=== PATIENT | female | born 1955 | race Caucasian/White ===

== ENCOUNTER 2019-12-28 09:01 | Emergency (ER) | payer OTHER ==
--- NOTE | 2019-12-28 09:39 | ER ---
Nurse's Notes [facility] Name: Anusha Gilbert Age: 64 yrs Sex: Female : 1955 Arrival Date: 12/28/2019 Time: 09:03 Bed 5 Private MD: Francisco Pimentel V Diagnosis: Encounter for general adult medical examination without abnormal findings Presentation: 12/27 09:18 Chief complaint: Patient states: Pt is not having any symptoms at this time, but is ss concerned because she has been around her daughter, who's father in law's caregiver has not been feeling well. Coronavirus screen: Patient denies fever greater than 100.4F, cough, shortness of breath, or difficulty breathing. Proceed with normal triage process. Ebola Screen: Patient denies exposure to infectious person. Patient denies travel to an Ebola-affected area in the 21 days before illness onset. Resp Distress? No respiratory distress is noted at this time. Initial Sepsis Screen: Does the patient meet any 2 criteria? No. Patient's initial sepsis screen is negative. Does the patient have a suspected source of infection? No. Patient's initial sepsis screen is negative. Risk Assessment: Do you want to hurt yourself or someone else? Patient reports no desire to harm self or others. 09:18 Method Of Arrival: Ambulatory ss 09:18 Acuity: DONNY 5 ss Historical: - Allergies: 09:20 No Known Allergies; ss - PSHx: 09:20 ; Cholecystectomy; ss - Immunization history:: Adult Immunizations up to date. - Social history:: Smoking status: Patient denies any tobacco usage or history of. - Family history:: not pertinent. - Hospitalizations: : No recent hospitalization is reported. Screenin:49 Abuse screen: Denies threats or abuse. Denies injuries from another. Nutritional sv screening: No deficits noted. Tuberculosis screening: No symptoms or risk factors identified. Fall Risk None identified. Assessment: 09:25 General: Appears in no apparent distress. comfortable, well groomed, well developed, sv Behavior is calm, cooperative, appropriate for age. Pain: Denies pain. Neuro: Level of Consciousness is awake, alert, obeys commands, Oriented to person, place, time, situation, Moves all extremities. Full function Gait is steady, Speech is normal. Cardiovascular: Patient's skin is warm and dry. Respiratory: Airway is patent Respiratory effort is even, unlabored, Respiratory pattern is regular, symmetrical. Derm: Skin is intact, Skin is pink, warm \T\ dry. Musculoskeletal: Range of motion: intact in all extremities. Vital Signs: 09:18 BP 132 / 64; Pulse 71; Resp 14; Temp 97.4(TE); Pulse Ox 96% on R/A; Weight 77.11 kg; ss Height 5 ft. 2 in. (157.48 cm); Pain 0/10; 09:18 Body Mass Index 31.09 (77.11 kg, 157.48 cm) ED Course: 09:03 Patient arrived in ED. mr 09:03 Francisco Pimentel MD is Private Physician. mr 09:06 Mat Beltran MD is Attending Physician. rn 09:20 Triage completed. ss 09:20 Arm band placed on left wrist. ss 09:30 Patient has correct armband on for positive identification. sv 09:37 Francisco Pimentel MD is Referral Physician. rn 09:49 Justina Chatterjee RN is Primary Nurse. sv 09:49 No provider procedures requiring assistance completed. Patient did not have IV access sv during this emergency room visit. Administered Medications: No medications were administered Outcome: 09:37 Discharge ordered by . rn 09:49 Medical screen evaluation completed per provider. Patient declined treatment. sv 09:49 Condition: stable 09:49 Following a medical screening exam, the patient was provided information regarding alternative care sites and resources available per registration personnel. 09:50 Patient left the ED. sv Signatures: Justina Chatterjee, RN Maty Douglass mr Mat Beltran MD MD rn Smirch, Shelby, RN RN
--- NOTE | 2019-12-28 09:40 | EDPHYS ---
Physician Documentation [facility] Name: Anusha Gilbert Age: 64 yrs Sex: Female : 1955 Arrival Date: 12/28/2019 Time: 09:03 Bed 5 Private MD: Francisco Pimentel V ED Physician Mat Beltran HPI: 12/27 09:33 This 64 yrs old Female presents to ER via Ambulatory with complaints of rn Cough, Congestion. 09:33 This 64 yrs old Female presents to ER via Ambulatory with complaints of rn Possible COVID-19 exposure. Historical: - Allergies: 09:20 No Known Allergies; ss - PSHx: 09:20 ; Cholecystectomy; ss - Immunization history:: Adult Immunizations up to date. - Social history:: Smoking status: Patient denies any tobacco usage or history of. - Family history:: not pertinent. - Hospitalizations: : No recent hospitalization is reported. ROS: 09:34 Constitutional: Negative for fever, chills, and weight loss, Eyes: Negative for injury, rn pain, redness, and discharge, ENT: Negative for injury, pain, and discharge, Neck: Negative for injury, pain, and swelling, Cardiovascular: Negative for chest pain, palpitations, and edema, Respiratory: Negative for shortness of breath, cough, wheezing, and pleuritic chest pain, Abdomen/GI: Negative for abdominal pain, nausea, vomiting, diarrhea, and constipation, MS/Extremity: Negative for injury and deformity, Skin: Negative for injury, rash, and discoloration, Neuro: Negative for headache, weakness, numbness, tingling, and seizure. Exam: 09:34 Constitutional: This is a well developed, well nourished patient who is awake, alert, rn and in no acute distress. Head/Face: Normocephalic, atraumatic. Eyes: Pupils equal round and reactive to light, extra-ocular motions intact. Lids and lashes normal. Conjunctiva and sclera are non-icteric and not injected. Cornea within normal limits. Periorbital areas with no swelling, redness, or edema. Cardiovascular: Regular rate and rhythm. No pulse deficits. Respiratory: Lungs have equal breath sounds bilaterally, clear to auscultation. No wheezing. No increased work of breathing, no retractions or nasal flaring. Skin: Warm, dry Neuro: Awake and alert, GCS 15, Normal gait. Vital Signs: 09:18 BP 132 / 64; Pulse 71; Resp 14; Temp 97.4(TE); Pulse Ox 96% on R/A; Weight 77.11 kg; ss Height 5 ft. 2 in. (157.48 cm); Pain 0/10; 09:18 Body Mass Index 31.09 (77.11 kg, 157.48 cm) ss MDM: 09:21 Patient medically screened. rn 09:34 Differential Diagnosis. Data reviewed: vital signs, nurses notes, and as a result, I rn will discharge patient. Counseling: I had a detailed discussion with the patient and/or guardian regarding: the historical points, exam findings, and any diagnostic results supporting the discharge/admit diagnosis, the need for outpatient follow up, to return to the emergency department if symptoms worsen or persist or if there are any questions or concerns that arise at home. Special discussion: I discussed with the patient/guardian in detail that at this point there is no indication for admission to the hospital. It is understood, however, that if the symptoms persist or worsen the patient needs to return immediately for re-evaluation. ED course: Pt asymptomatic, after long discussion, she decides to leave, without testing given normal vitals, no oxygen requirement, and asymptomatic. being seen and possibly tested, will wait for those results and f/u with Dr. Pimentel or drive-thru testing if needed. . Administered Medications: No medications were administered Disposition: 12/28/19 09:37 Discharged to Home as Medical Screen. Impression: Encounter for general adult medical examination without abnormal findings. - Condition is Stable. - Discharge Instructions: Health Maintenance, Female. - Medication Reconciliation Form, Thank You Letter, Antibiotic Education, Prescription Opioid Use form. - Follow up: Francisco Pimentel MD; When: As needed; Reason: Recheck today's complaints, Re-evaluation by your physician. - Problem is new. - Symptoms are unchanged. Signatures: Justina Chatterjee RN RN Mat Beltran MD MD rn Smirch, Shelby, RN RN ss Corrections: (The following items were deleted from the chart) 09:44 09:37 12/28/2019 09:37 Discharged to Home. Impression: Encounter for general adult rn medical examination without abnormal findings. Condition is Stable. Forms are Medication Reconciliation Form, Thank You Letter, Antibiotic Education, Prescription Opioid Use. Follow up: Francisco Pimentel; When: As needed; Reason: Recheck today's complaints, Re-evaluation by your physician. Problem is new. Symptoms are unchanged. rn 09:50 09:44 12/28/2019 09:37 Discharged to Home as Medical Screen. Impression: Encounter for general adult medical examination without abnormal findings. Condition is Stable. Discharge Instructions: Health Maintenance, Female. Forms are Medication Reconciliation Form, Thank You Letter, Antibiotic Education, Prescription Opioid Use. Follow up: Francisco Pimentel; When: As needed; Reason: Recheck today's complaints, Re-evaluation by your physician. Problem is new. Symptoms are unchanged. rn
[2019-12-28 09:56] VITALS: BP 132/64; TEMP 97.4; O2SAT 96
== END 2019-12-28 09:50 | disposition home or self-care (01) ==
LOC: ER 09:01
DX: Z00.00 Encounter for general adult medical examination without abnormal findings (principal)
CPT/HCPCS: 99281